=== PATIENT | female | born 1980 | race African-American/Black ===

== ENCOUNTER 2022-09-01 13:33 | Emergency (ER) | payer MEDICAID, OTHER ==
[~2022-09-01] VITALS: Ht 154.9 cm; Wt 81.8 kg
[2022-09-01] MEDS ORDERED: ACETAMINOPHEN 325MG TABLET PO ONE (14:45)
[2022-09-01] MEDS ORDERED: KETOROLAC 60MG/2ML VIAL IM ONE (14:45)
[2022-09-01 15:22] VITALS: BP 139/87
[2022-09-01] MEDS ORDERED: IBUP-2030 MT (15:28)
[2022-09-01] MEDS ORDERED: CYCL5TAB MT (15:28)
== END 2022-09-01 16:05 | disposition home or self-care (01) ==
LOC: ER 13:33
DX: M54.2 Cervicalgia (principal); M54.9 Dorsalgia, unspecified; Z98.890 Other specified postprocedural states; V49.49XA Driver injured in collision with other motor vehicles in traffic accident, initial encounter; Y93.89 Activity, other specified; Y92.89 Other specified places as the place of occurrence of the external cause; Y99.8 Other external cause status
CPT/HCPCS: 72040; 73060; 81025; 96372; 99284; J1885

== ENCOUNTER 2023-08-10 10:14 | Emergency (ER) | payer MEDICAID, OTHER ==
[~2023-08-10] VITALS: Ht 154.9 cm; Wt 73.0 kg
[~2023-08-10 10:14] MED LIST: CYCL5TAB MT; IBUP-2030 MT
[2023-08-10 10:19] VITALS: O2SAT 98
[2023-08-10 11:23] LABS: CLARITY URINE CLEAR (CLEAR); COLOR URINE YELLOW (YELLOW); GLUCOSE URINE NEGATIVE (NEGATIVE); KETONES URINE NEGATIVE (NEGATIVE); LEUKOCYTE ESTERASE URINE NEGATIVE (NEGATIVE); NITRITE URINE NEGATIVE (NEGATIVE); OCCULT BLOOD URINE NEGATIVE (NEGATIVE); PH URINE 6.5 (4.5-8.0); PROTEIN URINE 2+ (NEGATIVE); SPECIFIC GRAVITY URINE 1.024 (1.005-1.030)
[2023-08-10 11:34] LABS: BACTERIA URINE 1+; RBC URINE 0-2 /hpf (0-2); SQUAMOUS EPITHELIAL CELL URINE 2+ /lpf (RARE/1+); YEAST URINE NONE SEEN
[2023-08-10 11:35] LABS: MUCUS URINE 1+ /lpf (< = 2+)
[2023-08-10] MEDS: ONDANSETRON 4MG ODT PO STA (13:37)
[2023-08-10 14:19] LABS: BASOPHILS % 0.9 % (0.0-2.0); DIFFERENTIAL COMMENT 0; EOSINOPHILS % 1.1 % (0.0-5.0); HEMATOCRIT. 32.5 % (36.0-48.0); HEMOGLOBIN. 10.8 g/dL (12.0-16.0); LYMPHOCYTES % 59.8 % (20.0-50.0); MEAN CORPUSCULAR HEMOGLOBIN 25.8 pg (28.0-32.0); MEAN CORPUSCULAR HGB CONC 33.3 g/dL (31.0-37.0); MEAN CORPUSCULAR VOLUME 77.5 fL (81.0-99.0); MEAN PLATELET VOLUME 7.3 fl (7.4-10.4); MONOCYTES % 10.1 % (2.0-8.0); NEUTROPHILS % 28.1 % (40.0-76.0); PLATELET 320 x1000/uL (130-400); RED BLOOD CELL COUNT 4.19 mill/uL (4.2-5.4); RED CELL DISTRIBUTION WIDTH 16.2 % (11.6-14.6); WHITE BLOOD COUNT 2.6 x1000/uL (4.5-11.0)
[2023-08-10 14:42] LABS: CHLORIDE 106 mEq/L (98-107); POTASSIUM 3.4 mEq/L (3.5-5.1); SODIUM 139 mEq/L (136-145)
[2023-08-10 14:43] LABS: CALCIUM 9.2 mg/dL (8.7-10.4); CARBON DIOXIDE 28 mEq/L (21-32)
[2023-08-10 14:48] LABS: CREATININE 0.7 mg/dL (0.6-1.0); GLUCOSE 86 mg/dL (70-105); UREA NITROGEN BLOOD 6 mg/dL (9-23)
[2023-08-10 14:50] LABS: ALANINE AMINOTRANSFERASE 11 IU/L (10-49); ALBUMIN 4.6 g/dL (3.2-4.8); ASPARTATE AMINOTRANSFERASE 17 IU/L (<34); BILIRUBIN TOTAL 0.2 mg/dL (0.1-1.0); PROTEIN TOTAL 7.8 g/dL (6.0-8.3)
[2023-08-10] MEDS ORDERED: NAPR-1176 MT (15:35)
[2023-08-10 15:53] VITALS: BP 174/101; PULSE 72; RESP 14; TEMP 98.4
== END 2023-08-10 15:58 | disposition home or self-care (01) ==
LOC: ER 10:14
DX: K80.50 Calculus of bile duct without cholangitis or cholecystitis without obstruction (principal); Z98.890 Other specified postprocedural states
CPT/HCPCS: 80053; 81003; 81025; 85025; 36415; 76705; 99284; Q0162; Z7610 ×2

== ENCOUNTER 2023-08-11 01:31 | Emergency (ER) | payer OTHER ==
[~2023-08-11] VITALS: Ht 154.9 cm; Wt 73.4 kg
[~2023-08-11 01:31] MED LIST changes: +NAPR-1176 MT
[2023-08-11 01:56] VITALS: BP 200/153; PULSE 88; RESP 16; TEMP 98.6; O2SAT 100
== END 2023-08-11 05:32 | disposition left against medical advice (07) ==
LOC: ER 01:31
DX: R50.9 Fever, unspecified (principal); Z53.21 Procedure and treatment not carried out due to patient leaving prior to being seen by health care provider